=== PATIENT | female | born 1950 | race Caucasian/White ===

== ENCOUNTER → 2016-04-25 | Outpatient (CLI) | payer OTHER ==
--- NOTE | 2016-04-26 11:27 | DI ---
THYROID ULTRASOUND, 04/25/2016 9:55 AM Clinical History: Lump in the neck. The patient apparently was unable to localize the position of the lump in the neck for this study. Previous Exam: None. Scans are performed through both lobes of the thyroid gland in multiple projections with the high res olution linear array probe. Color Doppler ultrasound is also performed. Both lobes of the thyroid gland are at the lower limits of normal in size. The right and left lobes m easure 14 x 13 x 34 mm, and 13 x 12 x 33 mm, in the AP, transverse, and longitudinal dimensions, resp ectively. Both lobes show a slightly inhomogeneous texture with areas of hypoechogenicity. Vessels ac count for some of the hypoechoic small nodules. No discrete mass is identified either in the thyroid tissue or in the surrounding tissues of the neck. Readin. No discrete mass is identified either in the thyroid gland or in the surrounding tissues. Unfortu nately, the patient was not able to identify the location of the neck mass. 2. The thyroid has an inhomogeneous hypoechoic micronodular pattern. This may be related to previous thyroiditis.
== END ==
LOC: US 09:43
PROVIDERS: ATTEND Physician Assistant Medical
DX: R22.1 Localized swelling, mass and lump, neck (principal)
CPT/HCPCS: 76536

== ENCOUNTER → 2016-05-06 | Outpatient (CLI) | payer OTHER ==
[2016-05-06 16:37] LABS: HEMOGLOBIN 16.1 g/dL (12.0-16.0); MEAN CORPUSCULAR HEMOGLOBIN 30.7 PG (27-31); MEAN CORPUSCULAR HGB CONC 33.5 g/dL (33-37); MEAN CORPUSCULAR VOLUME 91.4 FL (81-99); MEAN PLATELET VOLUME 10.4 FL (7.4-12.2); RED BLOOD COUNT 5.25 10^6/uL (4.20-5.40)
[2016-05-06 17:02] LABS: BLOOD UREA NITROGEN 15 mg/dL (7-22); BUN/CREATININE RATIO 21.42 (6-20); CALCIUM 9.6 mg/dL (8.7-10.7); CHOL/HDL RATIO 3.98 RATIO (0-4.0); EST GLOMERULAR FILTRATION > 60 (>60 ml/min/1.73m(2)); HDL CHOLESTEROL 70 mg/dL (40-150); SERUM ALBUMIN 4.5 g/dL (3.5-4.8); SERUM CHOLESTEROL 279 mg/dL (120-200)
[2016-05-06 18:01] LABS: FREE T4 (FREE THYROXINE) 0.9 ng/dL (0.93-1.71)
== END ==
LOC: MOB LAB 14:48
PROVIDERS: ATTEND Student in an Organized Health Care Education/Training Program
DX: E66.09 Other obesity due to excess calories (principal); J30.2 Other seasonal allergic rhinitis; R13.12 Dysphagia, oropharyngeal phase; Z13.220 Encounter for screening for lipoid disorders
CPT/HCPCS: 36415; 80053; 80061; 84439; 84443; 85027

== ENCOUNTER → 2016-05-27 | Outpatient (CLI) | payer OTHER ==
[2016-05-27 18:11] LABS: BILIRUBIN,URINE NEGATIVE (NEG); COLOR,URINE YELLOW; GLUCOSE, URINE (UA) NEGATIVE (NEG); NITRATE,URINE NEGATIVE (NEG); OCCULT BLOOD,URINE NEGATIVE (NEG); PROTEIN,URINE NEGATIVE (NEG); UROBILINOGEN,URINE 0.2 mg/dL (0.2)
[2016-05-27 18:12] LABS: BACTERIA,URINE MODERATE; CLARITY,URINE SLIGHTLY CLOUDY (CLEAR); SQUAMOUS EPITHELIAL CELL,UR RARE; URINE SAMPLE TYPE CLEAN CATCH URINE
== END ==
LOC: MOB LAB 15:28
PROVIDERS: ATTEND Student in an Organized Health Care Education/Training Program
DX: R30.0 Dysuria (principal); R10.2 Pelvic and perineal pain
CPT/HCPCS: 81001; 87077; 87088; 87186; 87480; 87510; 87660

== ENCOUNTER → 2016-06-11 | Outpatient (CLI) | payer OTHER ==
[2016-06-11 11:01] LABS: BILIRUBIN,URINE NEGATIVE (NEG); COLOR,URINE YELLOW; GLUCOSE, URINE (UA) NEGATIVE (NEG); NITRATE,URINE NEGATIVE (NEG); OCCULT BLOOD,URINE Trace-intact (NEG); PROTEIN,URINE NEGATIVE (NEG); UROBILINOGEN,URINE 0.2 mg/dL (0.2)
[2016-06-11 11:03] LABS: CLARITY,URINE SLIGHTLY CLOUDY (CLEAR)
[2016-06-11 11:18] LABS: BACTERIA,URINE MODERATE; SQUAMOUS EPITHELIAL CELL,UR RARE; URINE SAMPLE TYPE CLEAN CATCH URINE
== END ==
LOC: LAB 10:33
PROVIDERS: ATTEND Student in an Organized Health Care Education/Training Program
DX: N30.00 Acute cystitis without hematuria (principal)
CPT/HCPCS: 81001; 87088; 87186

== ENCOUNTER → 2016-06-16 | Outpatient (CLI) | payer OTHER ==
[2016-06-16 10:19] LABS: BILIRUBIN,URINE NEGATIVE (NEG); COLOR,URINE YELLOW; GLUCOSE, URINE (UA) NEGATIVE (NEG); NITRATE,URINE NEGATIVE (NEG); OCCULT BLOOD,URINE NEGATIVE (NEG); PH,URINE 5.5 (5.0-8.5); PROTEIN,URINE NEGATIVE (NEG); UROBILINOGEN,URINE 0.2 EU/dL (0.2)
[2016-06-16 10:20] LABS: CLARITY,URINE CLEAR (CLEAR); URINE SAMPLE TYPE CLEAN CATCH URINE
== END ==
LOC: LAB 09:56
PROVIDERS: ATTEND Student in an Organized Health Care Education/Training Program
DX: Z87.440 Personal history of urinary (tract) infections (principal)
CPT/HCPCS: 81003; 87088

== ENCOUNTER 2016-08-30 10:23 | Emergency (ER) | payer OTHER ==
[2016-08-30] MEDS ORDERED: NORMAL SALINE 10 ML SYRINGE FLUSH IVP PRN (10:50)
[2016-08-30 11:05] VITALS: RESP 20; TEMP 97.1
[2016-08-30 11:09] LABS: BASOPHILS # (AUTO) 0.04 10*3/UL; BASOPHILS % (AUTO) 0.4 % (0-1); EOSINOPHILS # (AUTO) 0.12 10*3/UL; EOSINOPHILS % (AUTO) 1.2 % (0-8); HEMATOCRIT 43.2 % (37.0-47.0); HEMOGLOBIN 14.6 g/dL (12.0-16.0); LYMPHOCYTES # (AUTO) 1.45 10*3/uL; MEAN CORPUSCULAR HEMOGLOBIN 30.7 PG (27-31); MEAN CORPUSCULAR HGB CONC 33.8 g/dL (33-37); MEAN CORPUSCULAR VOLUME 90.8 FL (81-99); MEAN PLATELET VOLUME 10.1 FL (7.4-12.2); MONOCYTES # (AUTO) 0.72 10*3/UL (0.3-0.8); MONOCYTES % (AUTO) 7.3 % (5-15); NEUTROPHILS # (AUTO) 7.52 10*3/UL; NEUTROPHILS % (AUTO) 76.2 % (50-80); RED BLOOD COUNT 4.76 10^6/uL (4.20-5.40)
[2016-08-30 11:18] LABS: PLATELET MORPHOLOGY COMMENT NORMAL MORPHOLOGY (NORM); RBC MORPHOLOGY COMMENT NORMAL MORPHOLOGY (NORM); WBC MORPHOLOGY COMMENT NORMAL MORPHOLOGY (NORM)
[2016-08-30 11:22] LABS: BLOOD UREA NITROGEN 8 mg/dL (7-22); BUN/CREATININE RATIO 11.42 (6-20); CALCIUM 9.7 mg/dL (8.7-10.7); EST GLOMERULAR FILTRATION > 60 (>60 ml/min/1.73m(2)); SERUM ALBUMIN 4.2 g/dL (3.5-4.8)
[2016-08-30 12:28] LABS: BILIRUBIN,URINE NEGATIVE (NEG); CLARITY,URINE CLOUDY (CLEAR); COLOR,URINE YELLOW; GLUCOSE, URINE (UA) NEGATIVE (NEG); NITRATE,URINE POSITIVE (NEG); OCCULT BLOOD,URINE MODERATE (NEG); PROTEIN,URINE 100 mg/dl (NEG); UROBILINOGEN,URINE 0.2 mg/dL (0.2)
[2016-08-30 12:34] LABS: BACTERIA,URINE MODERATE; URINE SAMPLE TYPE CATH SPECIMEN; WBC,URINE >100
--- NOTE | 2016-08-30 14:24 | PDOC ---
General Adult HPI - General Chief Complaint: Nausea / Vomiting / Diarrhea Stated Complaint: diarrhea, bladder cramps; leaking around lobo catheter Date Seen by Provider: 08/30/16 Time Seen by Provider: 10:31 Source: POSITIVE: Patient Exam Limitations: POSITIVE: No limitations Nurse's Notes Reviewed & Considered: Yes - History of Present Illness Initial Comment: The patient is a 65-year-old female. She presents to the emergency room with 3 complaints. Patient states that patient underwent the removal of the urethral cyst around a 23 Gina. She has had an indwelling Lobo since that time. She states she hasn't appointment with your urologist this coming Thursday. She states that she has had leaking around the Lobo catheter and she also states that she has had "bladder spasms" for the last one or 2 days. She called her urologist earlier today with regard to these complaints and he recommended that she start on Myrbetriq and she took 50 mg of this medication at 6:50 AM. She is also taking oxybutynin 5 mg. She furthermore states that around 8 AM she had a loose bowel movement. And has had 2 more loose bowel movements in the intervening 2-1/2 hours. No fevers or chills. No nausea or vomiting. No melena, hematochezia, hematemesis. Have you received a tetanus shot in the past 10 years?: Unknown Body Location Affected: REPORTS: Abdomen (Bladder spasms, leaking around her Lobo catheter, diarrhea as above.) Timing: REPORTS: Gradual Duration: <24 hours Severity: Moderate Quality: REPORTS: Cramping ("Bladder spasms "), "Pain" ("Bladder spasms ") Context: REPORTS: None Modifying Factors: improves with: Nothing Similar Symptoms Previously: No Recent Care Received: REPORTS: Recently Seen, Treated by MD, Surgery (As above) Any Prior Injuries Related to Current Complaint?: No - Patient Home Medications Home Medications: Home Medications Mirabegron [Myrbetriq] 50 mg PO DAILY PRN 08/30/16 Oxybutynin Chloride 5 mg PO DAILY 08/30/16 Sulfamethoxazole/Trimethoprim [Bactrim Ds Tablet] 1 tab PO Q12H #20 tab - Patient Allergies Allergies/Adverse Reactions: Allergies Allergy/AdvReac Type Severity Reaction Status Date / Time ibuprofen Allergy Intermediate RASH Verified 08/30/16 10:35 Past Medical History - heen HEENT History: Denies History Cardiovascular History: Denies History Respiratory History: Denies History Gastrointestinal History: Denies History Genitourinary History: Other (please comment) Additional Genitourinary History: URETHRAL CYSTS Endocrine History: Denies History Musculoskeletal History: Denies History Neurological History: Denies History Blood Disorders: Denies History Psychiatric History: Denies History History of Sexually Transmitted Diseases: No Female Reproductive History: Denies History Obstetrical History: Denies History Cancer History: Denies History In Past Year Been Physically Harmed or Verbally Threatened: No History of MDRO: No History of Other Communicable Diseases: No Tobacco Use: Former Smoker Alcohol Use: Rarely Substance Use Type: None Previous Surgical History: Yes Type / Date of Surgery: URETHRAL SURGERY TO REMOVE CYSTS X 2. TUBAL. ABD HERNIA Significant Family History: No pertinent family hx Past Medical History Reviewed: Reviewed - No Changes ROS - Limitations ROS Limitations: No Limitations Constitution: REPORTS: Denies Symptoms Cardiovascular: REPORTS: Denies Cardiac Symptoms Respiratory: REPORTS: Denies Resp Symptoms Neurological: REPORTS: Denies Neuro Symptoms Gastrointestinal: REPORTS: Diarrhea Endocrine: REPORTS: Denies Symptoms Musculoskeletal: REPORTS: Denies MS Symptoms Genitourinary: REPORTS: Other ("Bladder spasms "and leaking around her Lobo catheter) Eyes: REPORTS: Denies Symptoms ENT: REPORTS: Denies Symptoms Skin: REPORTS: Denies Skin Symptoms Lympathic: REPORTS: Denies Lympathic Symptoms Immunologic: POSITIVE: Denies Symptoms Psychiatric: POSITIVE: Denies Psych Symptoms General Adult Exam - General Appearance General Appearance: POSITIVE: Alert, Cooperative, No Acute Distress, No Evidence of Trauma - Neck Neck: POSITIVE: Normal Inspection, Thyroid Normal - Respiratory Respiratory: POSITIVE: No Respiratory Distress, Breath Sounds Normal, Chest Non- Tender - Cardiovascular Cardiovascular: POSITIVE: Regular Rate & Rhythm, No Murmur, No Gallop, PMI Normal Peripheral Pulses: Radial (R): 2+, Radial (L): 2+ - Abdomen Abdomen: Soft: (All Quadrants), Normal Bowel Sounds: (All Quadrants), Denies Tenderness: (All Quadrants), No Splenomegaly: (All Quadrants), No Hepatomegaly: (All Quadrants), No Guarding: (All Quadrants), No Rebound: (All Quadrants), No Palpable Pulse: (All Quadrants), No Palpabale Mass: (All Quadrants), No Distention: (All Quadrants), No Rigidity: (All Quadrants) Additional Abdominal Details: Inspection of patient's Lobo catheter shows it to be draining poorly and at least partially plugged. Urine is draining from around the catheter balloon. Catheter replaced. With replacement of the catheter 200 mL of urine was recovered, indicating the catheter was not draining appropriately. Following replacement, the bladder was draining well and the patient's complaint of bladder spasms are much less. Catheterized urine specimen shows a UTI. - Rectal Rectal: POSITIVE: Other (Anal inspection shows no bleeding; mild erythema) - Back Back: POSITIVE: Normal Inspection - Skin Skin: POSITIVE: Normal Color, Warm, Dry, No Rash - Extremities Extremity: Non-Tender: (All Extremities), Normal ROM: (All Extremities), Normal Inspection: (All Extremities) - Neurological / Psychological Neurological: POSITIVE: Affect Apporpriate, Oriented X3, compensation administrator Normal As Tested, Motor Normal, Sensation Normal Procedures - Additional Procedures Additional Procedures: Lobo Catheter (Lobo catheter was replaced; Lobo was not draining well and was draining urine was draining around the balloon of the catheter. Following replacement of the Lobo, 200 mL of urine were obtained through the new Lobo and catheterized urine analysis shows urinary tract infection. Patient achieved good relief of her "bladder spasms "following catheter replacement.) General Adult Progress - Results Reviewed by me Lab Results Reviewed: Yes Lab Results:: Laboratory Results 08/30/16 08/30/16 Range/Units 11:00 12:16 WBC 9.87 (4.8-10.8) 10^3/uL RBC 4.76 (4.20-5.40) 10^6/uL Hgb 14.6 (12.0-16.0) g/dL Hct 43.2 (37.0-47.0) % MCV 90.8 (81-99) FL MCH 30.7 (27-31) PG MCHC 33.8 (33-37) g/dL RDW Std Deviation 43.6 (39-50) fL RDW Coeff of Eric 13.4 (11.5-14.5) % Plt Count 269 (140-350) 10*3/uL MPV 10.1 (7.4-12.2) FL Immature Gran % (Auto) 0.2 (0-5) % Neut % (Auto) 76.2 (50-80) % Lymph % (Auto) 14.7 (10-50) % [place] % (Auto) 7.3 (5-15) % Eos % (Auto) 1.2 (0-8) % Baso % (Auto) 0.4 (0-1) % Immature Gran # (Auto) 0.02 10*3/UL Neut # (Auto) 7.52 10*3/UL Lymph # (Auto) 1.45 10*3/uL [place] # (Auto) 0.72 (0.3-0.8) 10*3/UL Eos # (Auto) 0.12 10*3/UL Baso # (Auto) 0.04 10*3/UL WBC Morphology Comment Normal morphology (NORM) Plt Morphology Comment Normal morphology (NORM) RBC Morph Comment Normal morphology (NORM) Sodium 136 (135-145) meq/L Potassium 4.0 (3.8-5.2) meq/L Chloride 103 (98-112) meq/L Carbon Dioxide 23 (23-33) meq/L Anion Gap 10 (5-20) BUN 8 (7-22) mg/dL Creatinine 0.7 (0.50-1.20) mg/dL Estimated GFR > 60 (>60 ml/min/1.73m(2)) BUN/Creatinine Ratio 11.42 (6-20) Glucose 112 H (78-110) mg/dL Calculated Osmolality 280.0 (267-292) mOsm/kg Calcium 9.7 (8.7-10.7) mg/dL Total Bilirubin 0.9 (0.3-1.2) mg/dL AST 16 (8-39) IU/L ALT 26 (9-52) IU/L Alkaline Phosphatase 80 (38-126) IU/L Total Protein 6.8 (6.1-8.0) g/dL Albumin 4.2 (3.5-4.8) g/dL Globulin 2.6 (2.50-4.10) g/dL Albumin/Globulin Ratio 1.60 (1.3-2.0) mg/g Ur Collection Type Cath specimen Urine Color Yellow Urine Clarity Cloudy (CLEAR) Urine pH 7.0 (5.0-8.5) Ur Specific [place] 1.015 (1.005-1.030) Urine Protein 100 (NEG) mg/dl Urine Glucose (UA) Negative (NEG) mg/dL Urine Ketones Trace (NEG) Urine Occult Blood Moderate (NEG) Urine Nitrate Positive H (NEG) Urine Bilirubin Negative (NEG) Urine Urobilinogen 0.2 (0.2) mg/dL Ur Leukocyte Esterase Large (NEG) Urine RBC 5-8 (NONE) /hpf Urine WBC >100 (NONE) Ur Squamous Epith Cells None (NONE) Ur Renal Epithelial Cell None (NONE) Urine Crystals None Urine Bacteria Moderate (NONE) Urine Casts None Urine Mucus None (NONE) Urine Trichomonas None (NONE) Urine Yeast None (NONE) - Patient's Progress Pain Medication Addressed: POSITIVE: Not Applicable School/Work Release Addressed: POSITIVE: Not Applicable Re-Examine Time: 13:00 Re-Examine Comment: Patient unable to produce stool specimens in the emergency room. Patient given specimen containers and was advised to return stool specimens to the laboratory one available. Patient achieved good relief of her bladder spasm and resolution of her urine flow around the Lobo catheter with replacement of her Lobo. Patient started on Bactrim DS for urinary tract infection. Status: POSITIVE: Improved, Re-Examined Antibiotics Given: Yes (Bactrim DS, one twice daily for 10 days) - Consult Counseled: POSITIVE: Patient, RE: Lab Results, RE: DX, RE: Need for F/U Patient Care Time - Estimated PCT Patient Care Time (In Minutes): 60 Vital Signs - Recent Vital Signs Vital Signs: Vital Signs (Last 8 hours) Temp Pulse Resp BP Pulse Ox 08/30/16 10:25 97.1 F 75 20 171/99 93 - VS Reviewed Vital Signs Reviewed: Yes Discharge Clinical Impression: Diarrhea, Urinary tract infection Condition: Fair Prescriptions / Orders: Sulfamethoxazole/Trimethoprim [Bactrim Ds Tablet] 1 tab PO Q12H #20 tab Patient Instructions Given at Discharge: Urinary Tract Infection in Women (ED) , Acute Diarrhea (ED) Additional Instructions: I believe you are going to be fine. I doubt that your loose bowel movements this morning is due to any serious pathology. However, to be on the safe side, please bring in stool specimens when they are available and we will run some tests for bowel infections. Diet as tolerated. Follow-up with your primary care provider and your urologist, as has already been arranged. Return here anytime if condition worsens in any way. Your bladder catheter was replaced and may have been partly obstructed. Catheterized urinalysis showed you may have a urinary tract infection, which may be causing you some bladder spasms. Therefore, we'll place you on Bactrim DS, one every 12 hours for 10 days. I have also prescribed you some Mycolog-II to be placed around the anal area twice daily for your anal discomfort. Please follow-up with your urologist as he has directed. Follow Up With: NISHANT POOLE [Primary Care Provider] - (Instructions as above. Follow-up with your primary care provider and your urologist. Bring stool specimens in when available. Return anytime if condition worsens in any way.)
== END 2016-08-30 13:07 | disposition home or self-care (01) ==
LOC: ER 10:23
DX: T83.511A Infection and inflammatory reaction due to indwelling urethral catheter, initial encounter (principal); T83.84XA Pain due to genitourinary prosthetic devices, implants and grafts, initial encounter; R19.7 Diarrhea, unspecified; T83.038A Leakage of other urinary catheter, initial encounter
CPT/HCPCS: 36000; 80053; 81001; 85025; 87077; 87088; 87186; 99283

== ENCOUNTER → 2016-08-31 | Outpatient (CLI) | payer OTHER | LOC: LAB 10:18 | PROVIDERS: ATTEND Emergency Medicine | DX: R19.7 Diarrhea, unspecified (principal); R11.2 Nausea with vomiting, unspecified | CPT/HCPCS: 87046; 87205; 87328; 87329; 87493 ==